=== PATIENT | female | born 1980 | race Caucasian/White ===

== ENCOUNTER 2019-07-05 13:43 | Emergency (ER) | payer OTHER ==
[2019-07-05] MEDS ORDERED: Sodium Chloride 0.9% 10 ML Syringe FLUSH PRN (14:12)
[2019-07-05] MEDS ORDERED: Nitroglycerin 0.4 MG Tab.SL SL ONE (14:18)
[2019-07-05] MEDS ORDERED: LORazepam 2 MG/ML SDV IVPUSH ONE (14:18)
[2019-07-05] MEDS ORDERED: Metoclopramide 10 MG/2 ML SDV IV ONE (14:19)
[2019-07-05] MEDS ORDERED: diphenhydrAMINE 50 MG/ML SDV IVPUSH ONE (14:20)
[2019-07-05] MEDS ORDERED: Aspirin 81 MG Tab.Chew PO ONE (14:24)
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
[2019-07-05] MEDS ORDERED: Sodium Chloride 0.9% 1,000 ML IV SCH (15:30)
[2019-07-05] MEDS ORDERED: Ketorolac 30 MG/ML SDV IVPUSH ONE (15:42)
--- NOTE | 2019-07-05 17:30 | CRLCR ---
INDICATION: Chest pain COMPARISON: None available. FINDINGS: PA and lateral views of the chest were obtained. The lungs are clear. No focal or diffuse infiltrates are present. The heart is normal in size. The mediastinum is normal in appearance. The osseous structures are normal in appearance for the patient`s age. IMPRESSION: Normal chest 2 views. Dictated by Vick Wick MD @ Jul 05 2019 5:29PM Signed by Dr. Vick Wick @ Jul 05 2019 5:30PM
== END 2019-07-05 17:31 | disposition home or self-care (01) ==
LOC: JP.ED 13:43
DX: S23.41XA Sprain of ribs, initial encounter (principal); F41.9 Anxiety disorder, unspecified; Z88.1 Allergy status to other antibiotic agents; Z91.040 Latex allergy status; X58.XXXA Exposure to other specified factors, initial encounter; Y92.512 Supermarket, store or market as the place of occurrence of the external cause; Y93.01 Activity, walking, marching and hiking
CPT/HCPCS: 36415; 71046; 80048; 80076; 83690; 83735; 83880; 84132; 84484; 85025; 85379; 93005; 96361; 96374; 96375; 99285; A9270; J1200; J1885; J2060; J2765; J7030; 93010; 99284

== ENCOUNTER 2019-07-09 14:15 | Emergency (ER) | payer OTHER ==
[2019-07-09] MEDS ORDERED: Sodium Chloride 0.9% 10 ML Syringe FLUSH PRN (15:39)
[2019-07-09] MEDS ORDERED: LORazepam 2 MG/ML SDV IVPUSH ONE (15:39)
[2019-07-09] MEDS ORDERED: Ketorolac 30 MG/ML SDV IVPUSH ONE (15:39)
[2019-07-09] MEDS ORDERED: Lactated Ringers 1,000 ML IV ONE (15:39)
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
--- NOTE | 2019-07-09 16:07 | CRLCT ---
INDICATION: 39-year-old female. Headaches. Left eye vision loss. TECHNIQUE: CT images were acquired from foramen magnum to vertex without contrast. FINDINGS: The ventricles normal in size and shape. Incidental cavum septum pellucidum. No acute hemorrhage. No subdural fluid collections no mass effect preservation of glynn-white interface without evidence of focal infarction. No posterior fossa hemorrhage or mass effect. No posterior orbital or suprasellar mass. The bony calvarium is unremarkable. There is inflammatory disease in the right frontal sinus. IMPRESSION: 1. Normal CT scan of the brain without contrast. 2. Localized inflammatory change in the right frontal sinus. Otherwise negative. Please note that all CT scans at this facility use dose modulation, iterative reconstruction, and/or weight-based dosing when appropriate to reduce radiation dose to as low as reasonably achievable. Dictated by Nick Suárez MD @ Jul 09 2019 4:03PM Signed by Dr. Nick Suárez @ Jul 09 2019 4:05PM
[2019-07-09] MEDS ORDERED: diphenhydrAMINE 50 MG/ML SDV IVPUSH ONE (17:04)
== END 2019-07-09 18:19 | disposition home or self-care (01) ==
LOC: JP.ED 14:15
DX: G43.909 Migraine, unspecified, not intractable, without status migrainosus (principal); F41.9 Anxiety disorder, unspecified; Z88.1 Allergy status to other antibiotic agents; Z91.040 Latex allergy status; Z79.899 Other long term (current) drug therapy
CPT/HCPCS: 70450; 96361; 96374; 96375; 99283; 99285; J1200; J1885; J2060; J7120

== ENCOUNTER 2019-11-19 16:48 | Emergency (ER) | payer OTHER ==
[2019-11-19] MEDS ORDERED: Alum Hydrox/Mag Hydrox/Simeth 15 ML, Lidocaine 2% 15 ML PO ONE ×2 (17:29)
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
[2019-11-19] MEDS ORDERED: Lactated Ringers 1,000 ML IV ONE (18:32)
[2019-11-19] MEDS ORDERED: fentaNYL 100 MCG/2 ML SDV IVPUSH ONE (18:32)
[2019-11-19] MEDS ORDERED: Sodium Chloride 0.9% 80 ML IV SCH (18:45)
[2019-11-19] MEDS ORDERED: Iopamidol 612 MG/ML 100 ML Bottle IV SCH (18:45)
[2019-11-19] MEDS: Sodium Chloride 0.9% 10 ML Syringe FLUSH PRN ×3 (19:20→19:52)
--- NOTE | 2019-11-19 20:21 | CRLCT ---
INDICATION: Epigastric pain TECHNIQUE: Axial images were obtained from the diaphragm to the pubic symphysis. Reformats were obtained in the coronal and sagittal plane. IV Contrast: 100 cc Isovue-300 Oral Contrast: None COMPARISON: None. FINDINGS: Lower chest: Unremarkable. Liver: Unremarkable. Normal in size and attenuation. No masses. Gallbladder and bile ducts: Unremarkable. No stones or inflammation. No biliary dilatation. Spleen: Unremarkable. Normal in size without mass. Pancreas: Unremarkable. No mass or inflammation. Adrenal glands: Unremarkable. No nodules. Kidneys: Symmetric enhancement with left renal hypodense lesions which visually likely represent cysts. Vasculature: Unremarkable. GI tract: The stomach is unremarkable. There are no dilated loops of large or small intestine. Mild small bowel wall thickening is noted within several loops within the mid abdomen and pelvis. Pelvis: Unremarkable. Bones: Unremarkable for age. IMPRESSION: 1. Multiple loops of small bowel with mild small-bowel wall thickening consistent with an enteritis. Please note that all CT scans at this facility use dose modulation, iterative reconstruction, and/or weight-based dosing when appropriate to reduce radiation dose to as low as reasonably achievable. Dictated by Rojas Dean MD @ Nov 19 2019 7:54PM Signed by Dr. Rojas Dean @ Nov 19 2019 8:20PM
[2019-11-19] MEDS ORDERED: Pantoprazole 40 MG Vial IVPUSH ONE (20:35)
[2019-11-19] MEDS ORDERED: Sodium Chloride 0.9% 100 ML IV SCH (20:45)
[2019-11-19] MEDS ORDERED: Sodium Chloride 0.9% 1,000 ML IV SCH (21:45)
== END 2019-11-19 21:49 | disposition home or self-care (01) ==
LOC: JP.ED 16:48
DX: B34.9 Viral infection, unspecified (principal); F41.9 Anxiety disorder, unspecified; Z88.1 Allergy status to other antibiotic agents; Z91.040 Latex allergy status; Z79.899 Other long term (current) drug therapy
CPT/HCPCS: 36415; 74177; 80053; 81001; 83605; 83690; 84484; 84703; 85025; 86140; 96361; 96374; 96375; 99285; A9270; C9113; J3010; J7030; J7050; J7120; Q9967; 99283

== ENCOUNTER 2021-08-06 09:41 | Emergency (ER) | payer OTHER ==
[2021-08-06 10:40] LABS: CORONAVIRUS COVID-19 NAA NEGATIVE (NEGATIVE)
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
--- NOTE | 2021-08-06 12:48 | CR ---
CHEST: 2 view CLINICAL HISTORY:Cough COMPARISON:2019 FINDINGS: The heart size, pulmonary vascularity and hilar structures are normal. No infiltrate effusion or pneumothorax is seen. IMPRESSION: No acute cardiopulmonary process.
== END 2021-08-06 12:46 | disposition home or self-care (01) ==
LOC: JP.ED 09:41
DX: J40 Bronchitis, not specified as acute or chronic (principal); Z88.1 Allergy status to other antibiotic agents; Z91.040 Latex allergy status; Z20.822 Contact with and (suspected) exposure to COVID-19
CPT/HCPCS: 0241U; 36415; 71046; 80048; 83605; 85025; 99283

== ENCOUNTER 2021-09-05 19:43 | Emergency (ER) | payer OTHER ==
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
[2021-09-05] MEDS ORDERED: Ketorolac 30 MG/ML SDV IM ONE (20:15)
[2021-09-05] MEDS ORDERED: Methocarbamol 500 MG Tab PO ONE (20:15)
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
== END 2021-09-05 22:31 | disposition home or self-care (01) ==
LOC: JP.ED 19:43
DX: S86.911A Strain of unspecified muscle(s) and tendon(s) at lower leg level, right leg, initial encounter (principal); S16.1XXA Strain of muscle, fascia and tendon at neck level, initial encounter; R20.2 Paresthesia of skin; Z88.1 Allergy status to other antibiotic agents; Z91.040 Latex allergy status; V49.40XA Driver injured in collision with unspecified motor vehicles in traffic accident, initial encounter
CPT/HCPCS: 70450; 72125; 96372; 99284; A9270; J1885

== ENCOUNTER 2022-09-27 16:27 | Emergency (ER) | payer OTHER ==
[2022-09-27 17:29] LABS: CORONAVIRUS COVID-19 NAA NEGATIVE (NEGATIVE)
== END 2022-09-27 17:48 | disposition home or self-care (01) ==
LOC: JP.ED 16:27
DX: J10.1 Influenza due to other identified influenza virus with other respiratory manifestations (principal); Z88.1 Allergy status to other antibiotic agents; Z91.040 Latex allergy status; Z20.822 Contact with and (suspected) exposure to COVID-19
CPT/HCPCS: 0241U; 99283

== ENCOUNTER 2022-12-25 10:02 | Emergency (ER) | payer OTHER ==
[2022-12-25] MEDS ORDERED: Albuterol/Ipratropium 3.0-0.5 MG/3 ML Neb Soln NEB ONE (10:35)
[2022-12-25 10:55] LABS: CORONAVIRUS COVID-19 NAA NEGATIVE (NEGATIVE)
== END 2022-12-25 11:37 | disposition home or self-care (01) ==
LOC: JP.ED 10:02
DX: J40 Bronchitis, not specified as acute or chronic (principal); Z88.1 Allergy status to other antibiotic agents; Z91.041 Radiographic dye allergy status; Z20.822 Contact with and (suspected) exposure to COVID-19
CPT/HCPCS: 0241U; 36415; 71046; 80048; 83605; 84484; 85025; 94640; 99285; 99282; J7620

== ENCOUNTER 2023-06-10 16:07 | Emergency (ER) | payer OTHER ==
[2023-06-10 17:05] LABS: BASOPHILS ABSOLUTE AUTO 0.03 K/uL (0.00-0.10); BASOPHILS PERCENT AUTO 0.4 % (0.1-1.3); EOSINOPHILS ABSOLUTE AUTO 0.12 K/uL (0.00-0.40); EOSINOPHILS PERCENT AUTO 1.5 % (0.0-5.4); HEMATOCRIT 38.7 % (34.3-46.0); HEMOGLOBIN 13.1 g/dL (11.2-15.5); IMMATURE GRAN PERCENT AUTO 0.3 % (0.0-0.7); LYMPHOCYTES PERCENT AUTO 23.9 % (11.4-47.7); MEAN CORPUSCULAR HEMOGLOBIN 29.8 pg (31.6-35.5); MEAN CORPUSCULAR HGB CONC 33.9 g/dL (31.6-35.5); MEAN CORPUSCULAR VOLUME 88.2 fL (81.4-99.0); MONOCYTES ABSOLUTE AUTO 0.66 K/uL (0.20-0.90); MONOCYTES PERCENT AUTO 8.3 % (3.3-12.6); NEUTROPHILS ABSOLUTE AUTO 5.21 K/uL (1.0-7.6); NEUTROPHILS PERCENT AUTO 65.6 % (40.0-78.1); PLATELET COUNT,PLT 253 K/uL (130-375); RED BLOOD CELL COUNT 4.39 M/uL (3.77-5.24); WHITE BLOOD CELL COUNT,WBC 7.9 K/uL (3.2-11.0)
[2023-06-10 17:10] LABS: IMMATURE GRAN ABSOLUTE AUTO 0.02 K/uL (0.00-0.23)
[2023-06-10 17:27] LABS: A/G RATIO 1.1 (1.2-2.2); ALANINE AMINOTRANSFERASE,ALT 40 U/L (12-78); ALBUMIN 3.8 g/dL (3.4-5.0); ALKALINE PHOSPHATASE 75 U/L (46-116); ASPARTATE AMNIOTRANSFERASE,AST 23 U/L (15-37); BILIRUBIN TOTAL 0.3 mg/dL (0.2-1.0); BLOOD UREA NITROGEN,BUN 9 mg/dL (7-18); C-REACTIVE PROTEIN 0.14 mg/dL (0.0-0.3); CALCIUM 8.6 mg/dL (8.5-10.1); CARBON DIOXIDE,CO2 28 mmol/L (21-32); CHLORIDE,CL 102 mmol/L (100-108); CREATININE 0.9 mg/dL (0.6-1.0); EST CRCL DRUG DOSING (CG) 73.27 mL/min; ESTIMATED GFR 82 mL/min (>60); GLUCOSE RANDOM 89 mg/dL (74-106); POTASSIUM,K 3.7 mmol/L (3.6-5.2); PROTEIN TOTAL,TP 7.2 g/dL (6.4-8.2); SODIUM,NA 139 mmol/L (140-148)
[2023-06-10 17:28] LABS: ANION GAP 12.7 mmol/L (5.0-14.0)
== END 2023-06-10 18:54 | disposition home or self-care (01) ==
LOC: JP.ED 16:07
DX: R10.31 Right lower quadrant pain (principal); Z88.1 Allergy status to other antibiotic agents
CPT/HCPCS: 36415; 80053; 83605; 85025; 86140; 99284

== ENCOUNTER 2023-09-22 09:50 | Emergency (ER) | payer OTHER ==
[2023-09-22 12:30] LABS: INFLUENZA A NAA NEGATIVE (NEGATIVE); INFLUENZA B NAA NEGATIVE (NEGATIVE); RESPIRATORY SYNCYTIAL VIR NAA NEGATIVE (NEGATIVE)
[2023-09-22 12:33] LABS: CORONAVIRUS COVID-19 NAA POSITIVE (NEGATIVE)
[2023-09-22] MEDS ORDERED: Ketorolac 30 MG/ML SDV IM ONE (13:02)
== END 2023-09-22 13:33 | disposition home or self-care (01) ==
LOC: JP.ED 09:50
DX: U07.1 COVID-19 (principal); K21.9 Gastro-esophageal reflux disease without esophagitis; Z79.899 Other long term (current) drug therapy; Z88.1 Allergy status to other antibiotic agents; Z91.040 Latex allergy status
CPT/HCPCS: 0241U; 96372; 99283; J1885

== ENCOUNTER 2024-04-02 08:59 | Emergency (ER) | payer OTHER ==
[2024-04-02] MEDS: Sodium Chloride 0.9% 1,000 ML IV SCH (10:22)
[2024-04-02] MEDS: Prochlorperazine 10 MG/2 ML SDV IVPUSH ONE (10:25)
[2024-04-02] MEDS: diphenhydrAMINE 50 MG/ML SDV IVPUSH ONE (10:29)
[2024-04-02] MEDS: Ketorolac 30 MG/ML SDV IVPUSH ONE (10:33)
[2024-04-02] MEDS: Sodium Chloride 0.9% 10 ML Syringe FLUSH PRN (10:35)
== END 2024-04-02 11:26 | disposition home or self-care (01) ==
LOC: JP.ED 08:59
DX: G43.909 Migraine, unspecified, not intractable, without status migrainosus (principal); Z79.899 Other long term (current) drug therapy; Z88.1 Allergy status to other antibiotic agents; Z91.040 Latex allergy status
CPT/HCPCS: 96374; 96375; 99283; 99283-25; J0780; J1200; J1885; J3490; J7030

== ENCOUNTER 2024-07-12 11:15 | Emergency (ER) | payer OTHER ==
[2024-07-12] MEDS ORDERED: Sodium Chloride 0.9% 10 ML Syringe FLUSH PRN (11:42)
[2024-07-12] MEDS: Sodium Chloride 0.9% 1,000 ML IV ONE (12:20)
[2024-07-12] MEDS: diphenhydrAMINE 50 MG/ML SDV IVPUSH ONE (12:32)
[2024-07-12] MEDS: Prochlorperazine 10 MG/2 ML SDV IVPUSH ONE (12:32)
[2024-07-12] MEDS: Ketorolac 15 MG/ML SDV IVPUSH ONE (12:34)
== END 2024-07-12 13:48 | disposition home or self-care (01) ==
LOC: JP.ED 11:15
DX: G43.909 Migraine, unspecified, not intractable, without status migrainosus (principal); Z79.899 Other long term (current) drug therapy; Z88.1 Allergy status to other antibiotic agents; Z91.040 Latex allergy status
CPT/HCPCS: 96361; 96374; 96375; 99283; J0780; J1200; J1885; J7030

== ENCOUNTER 2025-08-02 19:52 | Emergency (ER) | payer MEDICARE, OTHER | END 2025-08-02 21:37 | disposition home or self-care (01) | LOC: JP.ED 19:52 | DX: B34.9 Viral infection, unspecified (principal); Z88.1 Allergy status to other antibiotic agents; Z91.040 Latex allergy status | CPT/HCPCS: 36415; 70360; 70360-26; 86308; 99283 ==